=== PATIENT | male | born 1980 | race Caucasian/White ===

== ENCOUNTER 2018-03-29 05:29 | Emergency (ER) | payer OTHER ==
[2018-03-29] MEDS ORDERED: Acetaminophen/oxyCODONE 325-5 MG Tab PO ONE (05:54)
[2018-03-29] MEDS ORDERED: Ondansetron 4 MG Tab.DIS PO ONE (05:54)
--- NOTE | 2018-03-29 06:01 | EDM.PDOC ---
ED HPI GENERAL MEDICAL PROBLEM - General Chief Complaint: Back Pain or Injury Stated Complaint: SLIPPED ON ICE Time Seen by Provider: 03/29/18 05:55 Source of Information: Reports: Patient History Limitations: Reports: No Limitations - History of Present Illness INITIAL COMMENTS - FREE TEXT/NARRATIVE: 38-year-old male presents to the ED for evaluation of injuries to his lower buttoks and sacrum(tailbone). Patient states he slipped on the ice with his legs going out from underneath him and landing very hard on his buttoks and sacrum coccyx area about 3:00 yesterday afternoon. He recognized that he been heard but he can still get up and walk but overnight the pain has increased in intensity he can sleep on his side but he cannot lay flat and he can't hardly sit. Driving the car he has to sit forward with weight off of the sacrum. He is voiding okay but has not yet had to have a bowel movement. No mid or low back pain. Pain is constant and throbbing and worsened by coughing or sneezing. His would suggest an underlying fracture. He has no radicular pain in either lower extremity. 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 (Taking Motrin with minimal relief.) Sacral Pain Score (Numeric/FACES): 8 - Related Data Allergies Allergy/AdvReac Type Severity Reaction Status Date / Time No Known Allergies Allergy Verified 03/29/18 06:02 Home Meds: Home Meds Polyethylene Glycol 3350 [MiraLAX] 17 gm PO DAILY #14 packet 03/29/18 [Rx] oxyCODONE HCl/Acetaminophen [Percocet 5-325 mg Tablet] 1 - 2 each PO Q4H PRN # 36 tablet 03/29/18 [Rx] Past Medical History - Past Health History Medical/Surgical History: Denies Medical/Surgical History - Past Surgical History Musculoskeletal Surgical History: Reports: Arthroscopic Knee Social & Family History - Family History Family Medical History: Noncontributory - Tobacco Use Smoking Status *Q: Current Every Day Smoker Years of Tobacco use: 20 Packs/Tins Daily: 0.7 - Caffeine Use Caffeine Use: Reports: Coffee, Energy Drinks, Soda, Tea - Recreational Drug Use Recreational Drug Use: No - Living Situation & Occupation Living situation: Reports: Occupation: Employed ED ROS GENERAL - Review of Systems Review Of Systems: See Below Constitutional: Denies: Fever, Chills, Malaise, Weakness, Fatigue HEENT: Reports: No Symptoms Respiratory: Reports: No Symptoms Cardiovascular: Reports: No Symptoms Endocrine: Reports: No Symptoms GI/Abdominal: Reports: No Symptoms : Reports: No Symptoms Musculoskeletal: Reports: Other (Injury to the sacrum yesterday from a fall.) Skin: Reports: No Symptoms Neurological: Reports: No Symptoms Psychiatric: Reports: No Symptoms Hematologic/Lymphatic: Reports: No Symptoms ED EXAM,LOWER BACK PAIN/INJURY - Physical Exam Exam: See Below Exam Limited By: No Limitations General Appearance: Alert, WD/WN, Mild Distress Back Exam: Other (Examination of the lumbar spine reveals mild tenderness at L5- S1 facet joints bilaterally. He has abrasions and a superficial laceration to the right mid lower buttock the tissue is ecchymotic. Point of maximal tenderness is mid sacrum. The true coccyx appears to be intact and midline.) Extremities: Normal Inspection, Normal Range of Motion, Non-Tender, No Pedal Edema, Other (He can raise both legs on the gurney but with significant amount of pain in the tailbone and sacrum area.) Neurological: Alert, Normal Mood/Affect, Normal Dorsiflexion, CN II-XII Intact, No Motor/Sensory Deficits, Oriented x 3. No: Normal Gait Psychiatric: Normal Affect, Normal Mood Skin Exam: Warm, Dry, Intact, Ecchymosis (Both mid buttocks ) Course - Vital Signs Last Recorded V/S: Last Vital Signs Temp 36.8 C 03/29/18 05:38 Pulse 91 03/29/18 05:38 Resp 18 03/29/18 05:38 BP 136/84 03/29/18 05:38 Pulse Ox 96 03/29/18 05:38 - Orders/Labs/Meds Orders: Active Orders 24 hr Category Date Time Status Pelvis wo Cont [CT] Stat Exams 03/29/18 05:55 Taken Meds: Medications Discontinued Medications Generic Name Dose Route Start Last Admin Trade Name Puneet PRN Reason Stop Dose Admin Ondansetron HCl 4 mg 03/29/18 05:54 03/29/18 06:01 Zofran Odt PO 03/29/18 05:55 4 mg ONETIME ONE Administration Oxycodone/Acetaminophen 2 tab 03/29/18 05:54 03/29/18 06:01 Percocet 325-5 Mg PO 03/29/18 05:55 2 tab ONETIME ONE Administration - Radiology Interpretation Free Text/Narrative:: 38-year-old male presents to the ED for evaluation of injuries sustained from a fall yesterday on the ice. He states his feet went out from underneath him and he landed directly on his buttocks injuring his mid sacral area. Overnight over the last 10-12 hours the pain is increased intensity is constant and throbbing worsened by movement and coughing or sneezing suggesting underlying fracture. Examination reveals swelling in the appropriate areas across the mid buttocks with a superficial abrasion from the nuchal cleft on the right side mid buttock. Point of maximal tenderness again is mid sacrum. Plan given Percocet tabs 5/3/25 2 by mouth with Zofran [address] of the pelvis to include the sacrum and coccyx to be done as he is 275 pounds on x-rays would be futile. - Re-Assessments/Exams Free Text/Narrative Re-Assessment/Exam: 03/29/18 06:35 CT of the pelvis identifies a fracture through the fifth segment of his sacrum with slight anterior displacement. Correlates to his maximal point of tenderness on examination. Treatment is conservative. 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 I will give him a note to excuse him from the work place for at least the next 5 days. He will be using narcotic pain medication for the next 3-7 days for pain relief and then hopefully get away with Motrin only. Will have him follow-up with Dr. Stein orthopedic surgeon in the clinic in 2 weeks' time. Prescription written for Percocet 5/325 mg tabs 2 tablets every 4-6 hours needed with MiraLAX powder 17 g or 1 scoop daily to prevent constipation. Departure - Departure Time of Disposition: 06:37 Disposition: Home, Self-Care 01 Condition: Fair Clinical Impression: Fracture of sacrum Qualifiers: Encounter type: initial encounter Zone of sacrum fracture: zone III of sacrum Fracture type: closed Fracture alignment: minimally displaced Qualified Code(s) : S32.131A - Minimally displaced Zone III fracture of sacrum, initial encounter for closed fracture - Discharge Information *PRESCRIPTION DRUG MONITORING PROGRAM REVIEWED*: Not Applicable *COPY OF PRESCRIPTION DRUG MONITORING REPORT IN PATIENT LINDA: Not Applicable Prescriptions: oxyCODONE HCl/Acetaminophen [Percocet 5-325 mg Tablet] 1 - 2 each PO Q4H PRN # 36 tablet PRN Reason: pain relief. Polyethylene Glycol 3350 [MiraLAX] 17 gm PO DAILY #14 packet Instructions: Tailbone Injury Referrals: PCP,Not In Area [Primary Care Provider] - Forms: ED Department Discharge, ED Return to Work/School Form Additional Instructions: Evaluation in the emergency room today in regards to slipping and falling on the ice yesterday with direct blow to the tailbone area of your lower back. CT scan confirms a fracture through the fifth segment of your sacrum with slight anterior displacement. This is an area that we do not operate on and therefore the bone has to heal up on its own over the next several months. Treatment is conservative with sitting on a donut pad to keep the weight off of the area. 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 We will open about 8:00. Off work for the next 5 days. After that it's going to be a wait and see approach in terms whether you can stand for any significant length of time before the pain wins. The major problem course will be sitting on anything solid particularly even the toilet. He'll is a minimum of 3 months. I would suggest follow-up with orthopedic surgeon Dr. Ndiaye in 2 weeks' time. Please phone [phone] to arrange an appointment. He will follow this fracture along to make sure that it unites and heal satisfactorily. Percocet tabs 5/325 mg likely 2 every 4-6 hours for the first for 5 days and then as needed for pain relief. After 4 days you can also start to use Aleve 2 tablets every 8 hours or Motrin/ibuprofen 600 mg every 6 hours for pain relief. Also suggest using MiraLAX powder 17 g once daily to prevent any constipation from occurring from the use of pain medications. - My Orders Last 24 Hours: My Active Orders 03/29/18 05:55 Pelvis wo Cont [CT] Stat - Assessment/Plan Last 24 Hours: My Active Orders 03/29/18 05:55 Pelvis wo Cont [CT] Stat
--- NOTE | 2018-03-29 06:59 | CT ---
CT pelvis Technique: Multiple axial sections through the pelvis were obtained. Reconstructed sagittal and coronal images were reviewed. Comparison: No prior pelvis imaging. Findings: Severe disc space narrowing is noted at L5-S1 with vacuum phenomena. Sacroiliac joints appear within normal limits. Joint spaces within both hips are preserved. Distal sacral fracture is noted. This is best noted on the lateral reconstructed views and shows slight displacement by about 5 mm. No additional fracture or other bony abnormality is seen. Impression: 1. Mildly displaced distal sacral fracture. 2. Incidental disc space narrowing and vacuum phenomena within the L5-S1 disc. Diagnostic code #3
== END 2018-03-29 07:10 | disposition home or self-care (01) ==
LOC: JD.ED 05:29
DX: S32.131A Minimally displaced Zone III fracture of sacrum, initial encounter for closed fracture (principal); F17.210 Nicotine dependence, cigarettes, uncomplicated; W00.0XXA Fall on same level due to ice and snow, initial encounter
CPT/HCPCS: 72192; 99284; A9270; 99283

== ENCOUNTER 2018-04-08 13:27 | Emergency (ER) | payer SELFPAY ==
--- NOTE | 2018-04-08 14:34 | EDM.PDOC ---
ED HPI GENERAL MEDICAL PROBLEM - General Chief Complaint: Lower Extremity Injury/Pain Stated Complaint: RT KNEE PAIN Time Seen by Provider: 04/08/18 13:52 Source of Information: Reports: Patient, RN Notes Reviewed History Limitations: Reports: No Limitations - History of Present Illness INITIAL COMMENTS - FREE TEXT/NARRATIVE: Patient is a 38 year old male who presents to the ED for the evaluation of Right knee pain. He states that he was outdoors yesterday, when he went to [place] and then developed this pain. He notes that he has had prior ACL and MCL surgeries to the knee. He did not hear any cracking or popping sounds. The patient has been wearing an elastic knee brace, and it is mostly painful to the medial aspect of his knee. He has not been using ice, but has used aleve for pain relief and this works fairly well for him. He states it is somewhat painful to walk as well. He would rate his pain at a 5/10. 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) Other Treatments LOFT WORKER HEAD: alleve Right Knee Pain Score (Numeric/FACES): 5 - Related Data Allergies Allergy/AdvReac Type Severity Reaction Status Date / Time No Known Allergies Allergy Verified 03/29/18 06:02 Home Meds: Home Meds Polyethylene Glycol 3350 [MiraLAX] 17 gm PO DAILY #14 packet 03/29/18 [Rx] oxyCODONE HCl/Acetaminophen [Percocet 5-325 mg Tablet] 1 - 2 each PO Q4H PRN # 36 tablet 03/29/18 [Rx] Past Medical History - Past Health History Medical/Surgical History: Denies Medical/Surgical History - Past Surgical History Musculoskeletal Surgical History: Reports: Arthroscopic Knee, Other (See Below) Other Musculoskeletal Surgeries/Procedures:: ACL MCL repair; S5 fracture due to a fall Social & Family History - Family History Family Medical History: Noncontributory - Tobacco Use Smoking Status *Q: Current Every Day Smoker Years of Tobacco use: 20 Packs/Tins Daily: 0.5 - Caffeine Use Caffeine Use: Reports: None - Recreational Drug Use Recreational Drug Use: No - Living Situation & Occupation Living situation: Reports: Occupation: Employed Review of Systems - Review of Systems Review Of Systems: See Below Constitutional: Reports: No Symptoms Eyes: Reports: No Symptoms Ears: Reports: No Symptoms Nose: Reports: No Symptoms Mouth/Throat: Reports: No Symptoms Respiratory: Reports: No Symptoms Cardiovascular: Reports: No Symptoms GI/Abdominal: Reports: No Symptoms Genitourinary: Reports: No Symptoms Musculoskeletal: Reports: Joint Pain (right knee). Denies: Leg Pain, Joint Swelling, Muscle Pain Skin: Reports: No Symptoms Neurological: Denies: Numbness, Tingling Psychiatric: Reports: No Symptoms ED EXAM, GENERAL - Physical Exam Exam: See Below Free Text/Narrative:: exam limited to right lower extremity General Appearance: Alert, WD/WN, No Apparent Distress Respiratory/Chest: No Respiratory Distress, Lungs Clear, Normal Breath Sounds, No Accessory Muscle Use, Chest Non-Tender Cardiovascular: Normal Peripheral Pulses, Regular Rate, Rhythm, No Murmur Extremities: Normal Inspection, Normal Capillary Refill, Limited Range of Motion (due to pain of right knee), Other (pain with valgus stress of the right knee). No: Joint Swelling, Leg Pain, Increased Warmth, Redness Neurological: Alert, Oriented, Normal Cognition, No Motor/Sensory Deficits Psychiatric: Normal Affect, Normal Mood Skin Exam: Warm, Dry, Intact, Normal Color, No Rash Course - Vital Signs Last Recorded V/S: Last Vital Signs Temp 98.7 F 04/08/18 13:52 Pulse 91 04/08/18 13:52 Resp 20 04/08/18 13:52 BP 112/93 H 04/08/18 13:52 Pulse Ox 100 04/08/18 13:52 - Re-Assessments/Exams Free Text/Narrative Re-Assessment/Exam: 04/08/18 14:36 Pt presents to the ED for the evaluation of right knee pain. It is likely that he may have injured his right MCL. He does not want imaging or any medications today. Will provide him with numbers for ortho and PCP referrals and recommend he wait a week to see if his knee doesn't improve in the meantime. Will recommend rest, ice and NSAIDs for pain relief. Departure - Departure Time of Disposition: 14:41 Disposition: Home, Self-Care 01 Condition: Fair Clinical Impression: Right knee pain Qualifiers: Chronicity: acute Qualified Code(s): M25.561 - Pain in right knee - Discharge Information *PRESCRIPTION DRUG MONITORING PROGRAM REVIEWED*: No *COPY OF PRESCRIPTION DRUG MONITORING REPORT IN PATIENT LINDA: No Instructions: Knee Pain, Adult, [id number] Referrals: PCP,None [Primary Care Provider] - Additional Instructions: You have been evaluated in the ED fo your right knee pain. It is likely that you may have re-injured your medial ligament of your right knee. Please take 1-2 tabs of Aleve BID for pain relief, use ice to your right knee as tolerated, and use the knee brace as tolerated for pain relief. Please give this around 1 week to start feeling better. If this is not improving in a week or so, you may call [phone] to establish with a primary care provider. Orthopedics [phone] (Dr. Ndiaye) or [phone] (Dr. Mishra) Please return to ED if your symptoms should change or worsen.
== END 2018-04-08 14:58 | disposition home or self-care (01) ==
LOC: JD.ED 13:27
DX: M25.561 Pain in right knee (principal); F17.210 Nicotine dependence, cigarettes, uncomplicated
CPT/HCPCS: 99283

== ENCOUNTER 2020-02-12 21:26 | Emergency (ER) | payer SELFPAY ==
[2020-02-12] MEDS ORDERED: HYDROmorphone 0.5 MG/0.5 ML Syringe IVPUSH ONE (22:23)
[2020-02-12] MEDS ORDERED: Sodium Chloride 0.9% 10 ML Syringe FLUSH PRN (22:23)
[2020-02-12] MEDS ORDERED: Ondansetron 4 MG/2 ML SDV IVPUSH ONE (22:24)
[2020-02-12] MEDS ORDERED: Alum Hydrox/Mag Hydrox/Simeth 30 ML, Lidocaine 2% 15 ML PO ONE ×2 (23:13)
--- NOTE | 2020-02-12 23:38 | EDM.PDOC ---
ED HPI GENERAL MEDICAL PROBLEM - General Chief Complaint: Abdominal Pain Stated Complaint: PAIN IN UPPER ABDOMINAL Time Seen by Provider: 02/12/20 22:13 Source of Information: Reports: Patient, RN Notes Reviewed - History of Present Illness INITIAL COMMENTS - FREE TEXT/NARRATIVE: 40 yr old male with onset of abd pain this past morning. More severe upper mid abd after eating some chicken tenders. Nauseated. Not actively vomiting. No known hx of GB problems. Does get occasional heartburn. No chest pain or difficulty breathing. Upper Abdomen Pain Score (Numeric/FACES): 8 - Related Data Allergies Allergy/AdvReac Type Severity Reaction Status Date / Time No Known Allergies Allergy Verified 03/29/18 06:02 Home Meds: Home Meds . [No Known Home Meds] 02/12/20 [History] Past Medical History - Past Health History Medical/Surgical History: Denies Medical/Surgical History - Past Surgical History Musculoskeletal Surgical History: Reports: Arthroscopic Knee, Other (See Below) Other Musculoskeletal Surgeries/Procedures:: ACL MCL repair; S5 fracture due to a fall Social & Family History - Family History Family Medical History: No Pertinent Family History - Tobacco Use Tobacco Use Status *Q: Current Every Day Tobacco User Years of Tobacco use: 20 Packs/Tins Daily: 1 - Caffeine Use Caffeine Use: Reports: Soda - Recreational Drug Use Recreational Drug Type: Reports: Heroin, Marijuana/Hashish, Methamphetamine - Living Situation & Occupation Living situation: Reports: Occupation: Employed ED ROS GENERAL - Review of Systems Review Of Systems: See Below Constitutional: Denies: Fever, Chills HEENT: Reports: No Symptoms Respiratory: Denies: Shortness of Breath Cardiovascular: Denies: Chest Pain GI/Abdominal: Reports: Abdominal Pain, Nausea. Denies: Diarrhea Musculoskeletal: Denies: Back Pain Skin: Reports: No Symptoms Neurological: Reports: No Symptoms ED EXAM, GI/ABD - Physical Exam Exam: See Below General Appearance: Alert, Moderate Distress Head: Atraumatic Neck: Supple Respiratory/Chest: No Respiratory Distress, Lungs Clear, Normal Breath Sounds Cardiovascular: Regular Rate, Rhythm GI/Abdominal Exam: Soft, Tender (mild tenderness upper mid abd, no guarding or rebound), Other (lower abd completely soft and nontender). No: Guarding, Rebound Back Exam: No: CVA Tenderness (L), CVA Tenderness (R) Extremities: Normal Inspection, Normal Range of Motion Neurological: Alert, Oriented, No Motor/Sensory Deficits Skin Exam: Warm, Dry, Normal Color Course - Vital Signs Last Recorded V/S: Last Vital Signs Temp 98.3 F 02/12/20 21:38 Pulse 85 02/12/20 21:38 Resp 24 H 02/12/20 21:38 BP 109/88 02/12/20 21:38 Pulse Ox 100 02/12/20 21:38 - Orders/Labs/Meds Orders: Active Orders 24 hr Category Date Time Status Peripheral IV Insertion Adult [OM.PC] Stat Oth 02/12/20 22:23 Ordered Labs: Laboratory Tests 02/12/20 02/12/20 Range/Units 22:50 22:50 WBC 8.53 (4.23-9.07) K/mm3 RBC 4.87 (4.63-6.08) M/mm3 Hgb 15.1 (13.7-17.5) gm/dl Hct 46.1 (40.1-51.0) % MCV 94.7 H (79.0-92.2) fl MCH 31.0 (25.7-32.2) pg MCHC 32.8 (32.2-35.5) g/dl RDW Std Deviation 49.1 H (35.1-43.9) fL Plt Count 269 (163-337) K/mm3 MPV 9.7 (9.4-12.3) fl Neut % (Auto) 64.3 (34.0-67.9) % Lymph % (Auto) 25.3 (21.8-53.1) % [place] % (Auto) 8.7 (5.3-12.2) % Eos % (Auto) 1.5 (0.8-7.0) Baso % (Auto) 0.1 (0.1-1.2) % Neut # (Auto) 5.48 H (1.78-5.38) K/mm3 Lymph # (Auto) 2.16 (1.32-3.57) K/mm3 [place] # (Auto) 0.74 (0.30-0.82) K/mm3 Eos # (Auto) 0.13 (0.04-0.54) K/mm3 Baso # (Auto) 0.01 (0.01-0.08) K/mm3 Sodium 138 (136-145) mEq/L Potassium 3.8 (3.5-5.1) mEq/L Chloride 102 (98-107) mEq/L Carbon Dioxide 25 (21-32) mEq/L Anion Gap 14.8 (5-15) BUN 31 H (7-18) mg/dL Creatinine 1.2 (0.7-1.3) mg/dL Est Cr Clr Drug Dosing 99.76 mL/min Estimated GFR (MDRD) > 60 (>60) mL/min BUN/Creatinine Ratio 25.8 H (14-18) Glucose 102 (74-106) mg/dL Calcium 9.2 (8.5-10.1) mg/dL Total Bilirubin 0.5 (0.2-1.0) mg/dL AST 17 (15-37) U/L ALT 21 (16-63) U/L Alkaline Phosphatase 58 (46-116) U/L Total Protein 6.9 (6.4-8.2) g/dl Albumin 3.7 (3.4-5.0) g/dl Globulin 3.2 gm/dL Albumin/Globulin Ratio 1.2 (1-2) Lipase 235 (73-393) U/L Meds: Medications Discontinued Medications Generic Name Dose Route Start Last Admin Trade Name Freq PRN Reason Stop Dose Admin Al Hydroxide/Mg Hydroxide 30 0 ml 02/12/20 23:13 02/12/20 23:17 ml/ Lidocaine HCl 15 ml PO 02/12/20 23:14 45 ml ONETIME ONE Administration Hydromorphone HCl 1 mg 02/12/20 22:23 02/12/20 22:47 Dilaudid IVPUSH 02/12/20 22:24 0.5 mg ONETIME ONE Administration Ondansetron HCl 4 mg 02/12/20 22:24 02/12/20 22:47 Zofran IVPUSH 02/12/20 22:25 4 mg ONETIME ONE Administration Sodium Chloride 10 ml 02/12/20 22:23 02/12/20 22:47 Saline Flush FLUSH 10 ml ASDIRECTED PRN Administration Keep Vein Open - Re-Assessments/Exams Free Text/Narrative Re-Assessment/Exam: 02/13/20 00:52 labs checked are nl, feeling much better after IV meds and fluids. Departure - Departure Time of Disposition: 23:37 Disposition: Home, Self-Care 01 Condition: Fair Clinical Impression: Abdominal pain Qualifiers: Abdominal location: upper abdomen, unspecified Qualified Code(s): R10.10 - Upper abdominal pain, unspecified - Discharge Information Instructions: Abdominal Pain, Adult, [id number] Referrals: PCP,None [Primary Care Provider] - Forms: ED Department Discharge Additional Instructions: Clear liquids until tomorrow afternoon. Than careful bland diet as tolerated. Follow up clinic as needed. Return to ED if symptoms worsening in any way. Sepsis Event Note (ED) - Evaluation Sepsis Screening Result: No Definite Risk - Focused Exam Vital Signs: Vital Signs Temp Pulse Resp BP Pulse Ox 02/12/20 21:38 98.3 F 85 24 H 109/88 100 - My Orders Last 24 Hours: My Active Orders 02/12/20 22:23 Peripheral IV Insertion Adult [OM.PC] Stat - Assessment/Plan Last 24 Hours: My Active Orders 02/12/20 22:23 Peripheral IV Insertion Adult [OM.PC] Stat
== END 2020-02-12 23:45 | disposition home or self-care (01) ==
LOC: JD.ED 21:26
DX: R10.10 Upper abdominal pain, unspecified (principal); F17.210 Nicotine dependence, cigarettes, uncomplicated
CPT/HCPCS: 36415; 80053; 83690; 85025; 96374; 96375; 99284; A9270; J1170; J2405